=== PATIENT | female | born 1930 | race Caucasian/White ===

== ENCOUNTER 2017-07-10 12:40 | Emergency (ER) | payer MEDICARE ==
[2017-07-10 13:49] LABS: PTT 34.5 SEC (22.9-36.1); Prothrombin Time 14.2 SEC (12.0-14.7)
== END 2017-07-10 14:34 | disposition home or self-care (01) ==
LOC: ERS 12:40
DX: S90.32XA Contusion of left foot, initial encounter (principal); I48.91 Unspecified atrial fibrillation; I10 Essential (primary) hypertension; M81.0 Age-related osteoporosis without current pathological fracture; X58.XXXA Exposure to other specified factors, initial encounter
CPT/HCPCS: 36415; 85610; 85730; 99284

== ENCOUNTER 2017-10-03 13:27 | Outpatient (CLI) | payer MEDICARE ==
--- NOTE | 2017-10-03 14:28 | RAD ---
CHEST 2 VIEWS: HISTORY: Pleural effusion. COMPARISON: 01/14/17. FINDINGS: Cardiac silhouette is enlarged. Pulmonary vasculature is unremarkable. Mediastinum is midline with aortic calcification and multilevel vertebroplasty cement. Compression of a lower thoracic vertebral body between the postoperative levels appears stable to the 01/14/17 frontal chest radiograph. Lungs are hyperinflated. No confluent airspace consolidation or evidence of pneumothorax IMPRESSION: 1. Chronic obstructive pulmonary disease. 2. No significant pleural fluid is evident. 3. Cardiomegaly. 4. Atherosclerosis. 5. Multilevel thoracic vertebral body compression and vertebroplasty. POS: [facility]
== END 2017-10-03 13:28 | disposition home or self-care (01) ==
LOC: RAD 13:27
PROVIDERS: ATTEND Internal Medicine Cardiovascular Disease
DX: J90 Pleural effusion, not elsewhere classified (principal); J44.9 Chronic obstructive pulmonary disease, unspecified; I51.7 Cardiomegaly; I70.0 Atherosclerosis of aorta; G95.29 Other cord compression
CPT/HCPCS: 71046

== ENCOUNTER 2018-10-03 13:09 | Outpatient (CLI) | payer MEDICARE ==
--- NOTE | 2018-10-03 15:38 | BD ---
DEXA BONE DENSITY STUDY: HISTORY: Postmenopausal. BMD (g/cm2) T-SCORE LEFT FEMORAL NECK 0.568 -2.5 TOTAL 0.660 -2.3 RIGHT FEMORAL NECK 0.501 -3.1 TOTAL 0.625 -2.6 IMPRESSION: Osteoporosis of the right and left femoral neck. POS: [facility]
== END 2018-10-03 13:10 | disposition home or self-care (01) ==
LOC: BICMAMMO 13:09
PROVIDERS: ATTEND Internal Medicine Rheumatology
DX: M81.0 Age-related osteoporosis without current pathological fracture (principal)
CPT/HCPCS: 77080

== ENCOUNTER 2020-08-06 13:47 | Emergency (ER) | payer MEDICARE ==
--- NOTE | 2020-08-06 14:43 | CT ---
CT BRAIN WITHOUT CONTRAST: HISTORY: Fall, headache COMPARISON: 11/18/2013 FINDINGS: No evidence of acute infarct, hemorrhage, midline shift or abnormal extra-axial fluid collections is seen. The ventricular size is appropriate and the basilar cisterns are patent. The bony calvarium is intact. The visualized paranasal sinuses and mastoid air cells are well aerated. IMPRESSION: No CT evidence of acute intracranial process.
--- NOTE | 2020-08-06 14:53 | RAD ---
XR Chest 1 View Portable History: Injury Comparison: Radiograph 2017 Findings: Patient is rotated to the right. Possible right upper lobe airspace opacity. Thorax. Heart size is enlarged. Impression: Possible right upper lobe airspace opacity reflect aspiration or pneumonia less likely pu lmonary contusion.
--- NOTE | 2020-08-06 14:54 | CT ---
Exam: CT cervical spine without contrast HISTORY: Trauma. Pain. COMPARISON: None FINDINGS: No craniocervical dissociation. Appropriate alignment of the lateral masses of C1 and C2. Intact odon toid process Appropriate alignment of the facets. Straightening of normal cervical lordosis may be due to patient position, muscle spasm or cervical co llar. Soft tissue neck structures: No mass, lymphadenopathy or hematoma. No prevertebral soft tissue swelli ng. Upper mediastinum and lung apices: Chronic changes along parenchyma. Possible right upper lobe infilt rate, incompletely evaluated Central spinal canal: Neural foramina and central spinal canal are patent. Evaluation is limited by t echnique Vertebral bodies: Cervical spine vertebral body height is maintained. No fracture. IMPRESSION: 1. No cervical spine fracture 2. Multilevel degenerative changes of the cervical spine. There is severe loss of disc space height a t C3-C4, C4-C5 and C5-C6. 3. Possible right upper lobe infiltrate.
--- NOTE | 2020-08-06 14:56 | RAD ---
XR Hip Lt 2-3 View History: Injury Comparison: None. Findings: Subtle ovoid calcification measuring up to 1.5 cm projects over the lateral femoral cortex may reflect an area of heterotopic ossification. No acute displaced fracture or malalignment. The left obturator ring is intact. Left femoral head and neck are intact. Impression: 1. No acute fracture or malalignment. 2. 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
[2020-08-06 15:31] LABS: #Lymphocytes 1.2 thou/uL (1.20-3.40); #Neutrophils 5.4 thou/uL (1.40-6.50); %Basophils 0.1 % (0.0-1.0); %Eosinophils 0.3 % (0.0-10.0); %Lymphocytes 15.7 % (21.0-51.0); %Monocytes 12.5 % (0.0-10.0); %Neutrophils 71.4 % (42.0-75.0); Hemoglobin 13.4 g/dL (12.0-16.0); Mean Corpuscular HGB CONC 33.5 g/dL (32.0-36.0); Mean Corpuscular Hemoglobin 34.3 pg (27.0-31.0); Mean Platelet Volume 7.7 fL (7.4-10.4); Platelet Count 143 thou/uL (130-400); RBC Distribution Width 11.2 % (11.5-14.5); White Blood Cell (WBC) Count 7.6 thou/uL (4.8-10.8)
[2020-08-06] MEDS ORDERED: Cefepime 2 GM VIAL ONE (15:32)
[2020-08-06] MEDS ORDERED: Azithromycin 500 MG VIAL ONE (15:32)
[2020-08-06 15:53] LABS: ALT (SGPT) 17 U/L (8-55); AST (SGOT) 24 U/L (5-34); Albumin 4.1 g/dL (3.4-4.8); Alkaline Phosphatase 82 U/L (40-110); Anion Gap 17 mmol/L (10-20); BUN (Urea Nitrogen) 19 mg/dL (9.8-20.1); Bilirubin, Total 1.1 mg/dL (0.2-1.2); Calc. Creatinine Clearance 0 mL/min (70-130); Calcium 9.3 mg/dL (7.8-10.44); Carbon Dioxide 28 mmol/L (23-31); Chloride 100 mmol/L (98-107); Globulin 3.9 g/dL (2.4-3.5); Glucose 96 mg/dL (83-110); Sodium 141 mmol/L (136-145)
[2020-08-06 19:57] LABS: Bilirubin Negative (Negative); Blood, Urine Negative (Negative); Clarity Clear (Clear); Glucose, Urine (Dipstick) Normal (Negative); Ketone, Urine 60 mg/dL (Negative); Leukocyte 250 Leu/uL (Negative); Nitrite Negative (Negative); Protein, Urine (Dipstick) 20 mg/dL (Neg-Trace); RBC/HPF 0-3 HPF (0-3); Specific Gravity, Urine 1.014 (1.002-1.036); Squamous Epithelial 0-3 HPF (0-3); Urobilinogen Normal mg/dL (Less than 2); WBC/HPF 21-50 HPF (0-3); pH, Urine 7.5 (5.0-9.0)
[2020-08-06 20:07] LABS: Bacteria/HPF 1+ HPF (None Seen)
== END 2020-08-06 19:53 | disposition home or self-care (01) ==
LOC: ERS 13:47
DX: S00.83XA Contusion of other part of head, initial encounter (principal); S60.221A Contusion of right hand, initial encounter; J18.9 Pneumonia, unspecified organism; I48.91 Unspecified atrial fibrillation; E03.9 Hypothyroidism, unspecified; I10 Essential (primary) hypertension; W17.89XA Other fall from one level to another, initial encounter
CPT/HCPCS: 36415; 70450; 71045; 72125; 80053; 81003; 81015; 83605; 85025; 87040; 87086; 96365; 96366; 96367; J0456; J0692

== ENCOUNTER 2021-12-21 08:48 | Emergency (ER) | payer MEDICARE ==
[2021-12-21 10:17] LABS: #Lymphocytes 0.9 thou/uL (1.20-3.40); #Monocytes 0.7 thou/uL (0.11-0.59); #Neutrophils 5.6 thou/uL (1.40-6.50); %Basophils 0.1 % (0.0-1.0); %Eosinophils 0.6 % (0.0-10.0); %Lymphocytes 12.8 % (21.0-51.0); %Monocytes 9.9 % (0.0-10.0); %Neutrophils 76.7 % (42.0-75.0); Hemoglobin 10.3 g/dL (12.0-16.0); Mean Corpuscular HGB CONC 31.8 g/dL (32.0-36.0); Mean Corpuscular Hemoglobin 32.6 pg (27.0-31.0); Mean Platelet Volume 7.6 fL (7.4-10.4); Platelet Count 125 thou/uL (130-400); Red Blood Cell (RBC) Count 3.15 mill/uL (4.20-5.40); White Blood Cell (WBC) Count 7.3 thou/uL (4.8-10.8)
[2021-12-21 10:34] LABS: ALT (SGPT) 18 U/L (8-55); AST (SGOT) 26 U/L (5-34); Albumin 3.6 g/dL (3.4-4.8); Alkaline Phosphatase 68 U/L (40-110); Anion Gap 11 mmol/L (10-20); BUN (Urea Nitrogen) 19 mg/dL (9.8-20.1); Bilirubin, Total 1.5 mg/dL (0.2-1.2); CK (CPK) 18 U/L (29-168); Calc. Creatinine Clearance 0 mL/min (70-130); Calcium 9.1 mg/dL (7.8-10.44); Carbon Dioxide 31 mmol/L (23-31); Chloride 100 mmol/L (98-107); Globulin 2.9 g/dL (2.4-3.5); Glucose 87 mg/dL (83-110); Potassium 3.9 mmol/L (3.5-5.1); Protein, Total 6.5 g/dL (5.8-8.1); Sodium 138 mmol/L (136-145)
== END 2021-12-21 12:12 | disposition home or self-care (01) ==
LOC: ERS 08:48
DX: L03.312 Cellulitis of back [any part except buttock and flank] (principal); I48.91 Unspecified atrial fibrillation; E03.9 Hypothyroidism, unspecified; I10 Essential (primary) hypertension; M81.0 Age-related osteoporosis without current pathological fracture; Z79.899 Other long term (current) drug therapy
CPT/HCPCS: 36415; 71045; 80053; 82550; 83605; 83880; 85025

== ENCOUNTER 2022-01-05 13:59 | Emergency (ER) | payer MEDICARE ==
[~2022-01-05 13:59] MED LIST: Iopamidol-370 76% 500 ML 1 ML ONE
[2022-01-05 16:50] LABS: ALT (SGPT) 21 U/L (8-55); AST (SGOT) 33 U/L (5-34); Albumin 4.2 g/dL (3.4-4.8); Alkaline Phosphatase 64 U/L (40-110); Anion Gap 14 mmol/L (10-20); BUN (Urea Nitrogen) 20 mg/dL (9.8-20.1); Bilirubin, Total 0.9 mg/dL (0.2-1.2); Calc. Creatinine Clearance 0 mL/min (70-130); Carbon Dioxide 31 mmol/L (23-31); Chloride 100 mmol/L (98-107); Globulin 3.6 g/dL (2.4-3.5); Glucose 86 mg/dL (83-110); Protein, Total 7.8 g/dL (5.8-8.1); Sodium 141 mmol/L (136-145)
[2022-01-05 17:50] LABS: #Eosinphils 0.1 thou/uL (0.0-0.7); #Monocytes 0.5 thou/uL (0.11-0.59); #Neutrophils 1.9 thou/uL (1.40-6.50); %Basophils 1.2 % (0.0-1.0); %Eosinophils 2.3 % (0.0-10.0); %Lymphocytes 29.2 % (21.0-51.0); %Monocytes 13.2 % (0.0-10.0); %Neutrophils 54.2 % (42.0-75.0); Hemoglobin 11.6 g/dL (12.0-16.0); Mean Corpuscular Hemoglobin 32.9 pg (27.0-31.0); Mean Corpuscular Volume 99.6 fL (78.0-98.0); Mean Platelet Volume 7.4 fL (7.4-10.4); Platelet Count 157 thou/uL (130-400); RBC Distribution Width 12.4 % (11.5-14.5); Red Blood Cell (RBC) Count 3.54 mill/uL (4.20-5.40); White Blood Cell (WBC) Count 3.5 thou/uL (4.8-10.8)
== END 2022-01-05 19:25 | disposition home or self-care (01) ==
LOC: ERS 13:59
DX: K80.20 Calculus of gallbladder without cholecystitis without obstruction (principal); I48.91 Unspecified atrial fibrillation; E03.9 Hypothyroidism, unspecified; M81.0 Age-related osteoporosis without current pathological fracture; I10 Essential (primary) hypertension; Z79.899 Other long term (current) drug therapy; Z79.82 Long term (current) use of aspirin; Z79.01 Long term (current) use of anticoagulants; Z79.1 Long term (current) use of non-steroidal anti-inflammatories (NSAID)
CPT/HCPCS: 36415; 74177; 76705; 80053; 83690; 85025; Q9967

== ENCOUNTER 2022-01-26 16:03 | Outpatient (CLI) | payer MEDICARE ==
[2022-01-26 17:52] LABS: ALT (SGPT) 24 U/L (8-55); AST (SGOT) 36 U/L (5-34); Albumin 4.5 g/dL (3.4-4.8); Alkaline Phosphatase 55 U/L (40-110); Anion Gap 15 mmol/L (10-20); BUN (Urea Nitrogen) 20 mg/dL (9.8-20.1); Bilirubin, Direct 0.3 mg/dL (0.1-0.3); Bilirubin, Total 0.7 mg/dL (0.2-1.2); Calc. Creatinine Clearance 0 mL/min (70-130); Calcium 10.5 mg/dL (7.8-10.44); Carbon Dioxide 32 mmol/L (23-31); Estimated GFR 65; Globulin 3.5 g/dL (2.4-3.5); Glucose 108 mg/dL (83-110); Potassium 3.7 mmol/L (3.5-5.1)
[2022-01-26 18:03] LABS: #Eosinphils 0.1 10x3/uL (0.0-0.5); #Monocytes 0.7 10x3/uL (0.0-1.1); #Neutrophils 2.5 10x3/uL (1.5-8.4); %Basophils 0.7 % (0.0-2.0); %Eosinophils 2.4 % (0.0-6.0); %Lymphocytes 27.1 % (18.0-47.0); %Monocytes 14.4 % (0.0-10.0); %Neutrophils 55.4 % (40.0-75.0); Chloride 99 mmol/L (98-107); Hemoglobin 11.6 g/dL (12.0-15.5); Mean Corpuscular HGB CONC 32.5 g/dL (32.0-36.0); Mean Corpuscular Hemoglobin 31.6 pg (27.0-33.0); Mean Corpuscular Volume 97.3 fl (81.6-98.3); Platelet Count 145 10x3/uL (150-450); RBC Distribution Width 13.3 % (11.5-14.5); Red Blood Cell (RBC) Count 3.67 10x6/uL (3.90-5.03); Sodium 142 mmol/L (136-145); White Blood Cell (WBC) Count 4.6 10x3/uL (3.5-10.5)
== END 2022-01-26 16:04 | disposition home or self-care (01) ==
LOC: LABBT 16:03
PROVIDERS: ATTEND Surgery
DX: Z01.812 Encounter for preprocedural laboratory examination (principal); K80.20 Calculus of gallbladder without cholecystitis without obstruction; Z20.822 Contact with and (suspected) exposure to COVID-19
CPT/HCPCS: 80053; 80076; 85025; 87811

== ENCOUNTER 2022-01-29 06:32 | Day surgery (SDC) | payer MEDICARE ==
[2022-01-28 10:05] VITALS: BMI 18.1
[2022-01-29] MEDS ORDERED: Lidocaine 1% w/Epinephrine 1:100K 20 ML VIAL ONE (09:43)
[2022-01-29] MEDS ORDERED: Bupivacaine 0.25% HCL 30 ML VIAL ONE (09:43)
[2022-01-29] MEDS ORDERED: fentaNYL Citrate/PF 100 MCG/2 ML SYRINGE ONE (09:52)
[2022-01-29] MEDS ORDERED: cefOXitin 2 GM VIAL ONE (10:02)
[2022-01-29] MEDS ORDERED: Naloxone HCl 0.4 mg/ml Vial ONE (10:02)
[2022-01-29] MEDS ORDERED: Sodium Chloride 0.9% 100 ML ONE (10:02)
[2022-01-29] MEDS ORDERED: Ondansetron PF 4 MG/2 ML Vial ONE ×2 (10:02→10:19)
[2022-01-29] MEDS ORDERED: Dexamethasone 20 MG/5 ML VIAL ONE (10:19)
[2022-01-29] MEDS ORDERED: Rocuronium Bromide 10 MG/ML (10ML VIAL) ONE (10:19)
[2022-01-29] MEDS ORDERED: Glycopyrrolate 0.2 MG/ML 5 ML SYRINGE ONE (10:19)
[2022-01-29] MEDS ORDERED: PROPOFOL 200 MG/20 ML VIAL ONE (10:19)
[2022-01-29] MEDS ORDERED: Lidocaine 1% PF 5 ML VIAL ONE (10:19)
[2022-01-29] MEDS ORDERED: HYDROcodone/Acetaminophen 5/325 mg Tablet ONE (14:38)
== END 2022-01-29 15:50 ==
LOC: SDC 06:32
PROVIDERS: ATTEND Surgery
PROC: 0FT44ZZ Resection of Gallbladder, Percutaneous Endoscopic Approach (ICD-10-PCS; principal; 2022-01-29)
DX: K80.10 Calculus of gallbladder with chronic cholecystitis without obstruction (principal); K82.1 Hydrops of gallbladder; M81.0 Age-related osteoporosis without current pathological fracture; I48.19 Other persistent atrial fibrillation; I11.0 Hypertensive heart disease with heart failure; I50.9 Heart failure, unspecified; I34.0 Nonrheumatic mitral (valve) insufficiency; E03.9 Hypothyroidism, unspecified; K21.9 Gastro-esophageal reflux disease without esophagitis; Z79.01 Long term (current) use of anticoagulants; Z79.82 Long term (current) use of aspirin; Z79.890 Hormone replacement therapy; Z79.899 Other long term (current) drug therapy; Z88.0 Allergy status to penicillin
CPT/HCPCS: 47562; C1713; 88304; J0694; J1100; J2310; J2405; J2704; J2710; J3490; S0020

== ENCOUNTER 2022-02-07 09:15 | Inpatient (IN) | payer MEDICARE ==
[2022-02-07 10:38] LABS: #Lymphocytes 0.7 thou/uL (1.20-3.40); #Monocytes 1.3 thou/uL (0.11-0.59); #Neutrophils 12.2 thou/uL (1.40-6.50); %Basophils 0.1 % (0.0-1.0); %Lymphocytes 4.8 % (21.0-51.0); %Monocytes 9.2 % (0.0-10.0); %Neutrophils 85.8 % (42.0-75.0); Hemoglobin 11.2 g/dL (12.0-16.0); Mean Corpuscular HGB CONC 32.1 g/dL (32.0-36.0); Mean Corpuscular Hemoglobin 32.4 pg (27.0-31.0); Platelet Count 148 thou/uL (130-400); RBC Distribution Width 13.1 % (11.5-14.5); Red Blood Cell (RBC) Count 3.44 mill/uL (4.20-5.40); White Blood Cell (WBC) Count 14.2 thou/uL (4.8-10.8)
[2022-02-07 10:43] LABS: Bacteria/HPF 4+ HPF (None Seen); Bilirubin Negative (Negative); Blood, Urine Negative (Negative); Clarity Clear (Clear); Glucose, Urine (Dipstick) Normal (Negative); Ketone, Urine Negative (Negative); Leukocyte Negative Leu/uL (Negative); Nitrite Negative (Negative); Protein, Urine (Dipstick) 30 mg/dL (Neg-Trace); RBC/HPF 0-3 HPF (0-3); Specific Gravity, Urine 1.017 (1.002-1.036); Squamous Epithelial None Seen HPF (0-3); Urobilinogen Normal mg/dL (Less than 2); WBC/HPF 0-3 HPF (0-3); pH, Urine 5.5 (5.0-9.0)
[2022-02-07 10:56] LABS: ALT (SGPT) 24 U/L (8-55); AST (SGOT) 26 U/L (5-34); Albumin 3.9 g/dL (3.4-4.8); Alkaline Phosphatase 100 U/L (40-110); Anion Gap 19 mmol/L (10-20); BUN (Urea Nitrogen) 26 mg/dL (9.8-20.1); Bilirubin, Total 1.8 mg/dL (0.2-1.2); Calc. Creatinine Clearance 0 mL/min (70-130); Carbon Dioxide 28 mmol/L (23-31); Chloride 93 mmol/L (98-107); Estimated GFR 65; Glucose 91 mg/dL (83-110); Potassium 4.2 mmol/L (3.5-5.1); Protein, Total 7.9 g/dL (5.8-8.1); Sodium 136 mmol/L (136-145)
[2022-02-07 11:02] LABS: SARS-CoV-2 NAA Rapid Test Not Detected (NotDetected)
[2022-02-07] MEDS ORDERED: Cefepime 2 GM VIAL ONE (11:33)
[2022-02-07] MEDS ORDERED: Vancomycin 1 GM/200 ML BAG ONE (12:39)
[2022-02-07] MEDS ORDERED: Ondansetron ODT 4 MG TAB PO PRN (14:39)
[2022-02-07] MEDS: Sodium Chloride 0.9% 1,000 ML IV SCH (16:30)
[2022-02-07 17:09] VITALS: BMI 19.9
[2022-02-07] MEDS: Azithromycin 500 MG in Sodium Chloride 0.9% 250 ML 250 ML IVPB SCH (19:25)
[2022-02-07] MEDS: Acetaminophen 325 MG TAB PO PRN (19:30)
[2022-02-07] MEDS: cefTRIAXone\\ROCEPHIN 1 GM in Sodium Chloride 0.9% 100 ML IVPB SCH (21:00)
[2022-02-08] MEDS: Sodium Chloride 0.9% 1,000 ML IV SCH ×2 (04:24→17:30)
[2022-02-08 06:47] LABS: #Eosinphils 0.1 thou/uL (0.0-0.7); #Lymphocytes 0.7 thou/uL (1.20-3.40); #Monocytes 0.7 thou/uL (0.11-0.59); #Neutrophils 5.9 thou/uL (1.40-6.50); %Eosinophils 0.7 % (0.0-10.0); %Lymphocytes 9.1 % (21.0-51.0); %Monocytes 9.7 % (0.0-10.0); %Neutrophils 80.5 % (42.0-75.0); Hemoglobin 9.7 g/dL (12.0-16.0); Mean Corpuscular HGB CONC 31.2 g/dL (32.0-36.0); Mean Corpuscular Hemoglobin 31.6 pg (27.0-31.0); Mean Platelet Volume 7.7 fL (7.4-10.4); Platelet Count 152 thou/uL (130-400); RBC Distribution Width 12.9 % (11.5-14.5); Red Blood Cell (RBC) Count 3.07 mill/uL (4.20-5.40); White Blood Cell (WBC) Count 7.4 thou/uL (4.8-10.8)
[2022-02-08 07:00] LABS: Anion Gap 13 mmol/L (10-20); BUN (Urea Nitrogen) 24 mg/dL (9.8-20.1); Calc. Creatinine Clearance 38 mL/min (70-130); Calcium 8.6 mg/dL (7.8-10.44); Carbon Dioxide 28 mmol/L (23-31); Chloride 101 mmol/L (98-107); Estimated GFR 83; Glucose 89 mg/dL (83-110); Potassium 3.7 mmol/L (3.5-5.1); Sodium 138 mmol/L (136-145)
[2022-02-08] MEDS ORDERED: Communication Order-Pharmacy FS SCH (09:06)
[2022-02-08] MEDS ORDERED: Enoxaparin Sodium 80 MG/0.8 ML SYRINGE SC SCH (09:15)
[2022-02-08] MEDS ORDERED: ALPRAZolam 0.25 MG TAB PO SCH ×2 (09:15)
[2022-02-08] MEDS ORDERED: Digoxin 0.125 MG TAB PO SCH (09:15)
[2022-02-08] MEDS ORDERED: Folic Acid 1 MG TAB PO SCH (09:30)
[2022-02-08] MEDS ORDERED: Enoxaparin Sodium 40 MG/0.4 ML SYRINGE SC SCH ×2 (09:30→21:00)
[2022-02-08] MEDS ORDERED: Cyanocobalamin (Vitamin B-12) 1,000 MCG TAB PO SCH (09:30)
[2022-02-08 10:18] LABS: Troponin I Less than 0.010 ng/mL (< 0.028)
[2022-02-08] MEDS: Azithromycin 500 MG in Sodium Chloride 0.9% 250 ML 250 ML IVPB SCH (16:08)
[2022-02-08] MEDS: ALPRAZolam 0.25 MG TAB PO SCH (20:06)
[2022-02-08] MEDS: Saccharomyces boulardii 250 MG CAP PO SCH (20:07)
[2022-02-08] MEDS: Acetaminophen 325 MG TAB PO PRN (20:07)
[2022-02-08] MEDS: cefTRIAXone\\ROCEPHIN 1 GM in Sodium Chloride 0.9% 100 ML IVPB SCH (20:07)
[2022-02-08] MEDS: Apixaban 2.5 MG TAB PO SCH (20:07)
[2022-02-08] MEDS ORDERED: Polyethylene Glycol 3350 17 GM Packet PO SCH (21:00)
[2022-02-09] MEDS: Levothyroxine Sodium 50 MCG TAB PO SCH (05:43)
[2022-02-09 05:47] LABS: #Eosinphils 0.1 thou/uL (0.0-0.7); #Lymphocytes 0.9 thou/uL (1.20-3.40); #Monocytes 0.6 thou/uL (0.11-0.59); #Neutrophils 5.8 thou/uL (1.40-6.50); %Basophils 0.3 % (0.0-1.0); %Eosinophils 0.9 % (0.0-10.0); %Lymphocytes 12.1 % (21.0-51.0); %Monocytes 7.7 % (0.0-10.0); %Neutrophils 78.9 % (42.0-75.0); Hemoglobin 11.3 g/dL (12.0-16.0); Mean Corpuscular HGB CONC 32.6 g/dL (32.0-36.0); Mean Corpuscular Hemoglobin 32.4 pg (27.0-31.0); Mean Corpuscular Volume 99.4 fL (78.0-98.0); Platelet Count 218 thou/uL (130-400); RBC Distribution Width 12.9 % (11.5-14.5); Red Blood Cell (RBC) Count 3.51 mill/uL (4.20-5.40); White Blood Cell (WBC) Count 7.3 thou/uL (4.8-10.8)
[2022-02-09 06:05] LABS: Anion Gap 13 mmol/L (10-20); BUN (Urea Nitrogen) 15 mg/dL (9.8-20.1); Calc. Creatinine Clearance 43 mL/min (70-130); Calcium 8.3 mg/dL (7.8-10.44); Carbon Dioxide 27 mmol/L (23-31); Chloride 105 mmol/L (98-107); Estimated GFR 85; Glucose 98 mg/dL (83-110); Potassium 3.6 mmol/L (3.5-5.1); Sodium 141 mmol/L (136-145)
[2022-02-09 06:43] LABS: ALT (SGPT) 16 U/L (8-55); AST (SGOT) 21 U/L (5-34); Alkaline Phosphatase 90 U/L (40-110); Bilirubin, Direct 0.3 mg/dL (0.1-0.3); Bilirubin, Total 0.7 mg/dL (0.2-1.2); Protein, Total 6.3 g/dL (5.8-8.1)
[2022-02-09 06:52] LABS: Phosphorus 1.7 mg/dL (2.3-4.7)
[2022-02-09 08:05] LABS: Digoxin 0.39 ng/mL (0.8-2.0)
[2022-02-09] MEDS ORDERED: HYDROcodone/Acetaminophen 5/325 mg Tablet PO PRN (08:17)
[2022-02-09] MEDS ORDERED: Digoxin 0.125 MG TAB PO SCH (09:00)
[2022-02-09] MEDS: Multivitamin W/ Minerals 1 TAB PO SCH (09:27)
[2022-02-09] MEDS: Folic Acid 1 MG TAB PO SCH (09:27)
[2022-02-09] MEDS: Sodium Chloride 0.9% 1,000 ML IV SCH (09:27)
[2022-02-09] MEDS: Cyanocobalamin (Vitamin B-12) 1,000 MCG TAB PO SCH (09:27)
[2022-02-09] MEDS: Apixaban 2.5 MG TAB PO SCH ×2 (09:28→21:26)
[2022-02-09] MEDS ORDERED: Polyethylene Glycol 3350 17 GM Packet PO SCH ×2 (14:15→21:00)
[2022-02-09] MEDS: cefTRIAXone\\ROCEPHIN 1 GM in Sodium Chloride 0.9% 100 ML IVPB SCH (21:23)
[2022-02-09] MEDS: HYDROcodone/Acetaminophen 7.5/325 mg Tablet PO SCH (21:26)
[2022-02-09] MEDS: ALPRAZolam 0.25 MG TAB PO SCH (21:26)
[2022-02-09] MEDS: Saccharomyces boulardii 250 MG CAP PO SCH (21:27)
[2022-02-09] MEDS: Nystatin Powder 15 GM BOT TOP SCH (21:29)
[2022-02-09] MEDS: Azithromycin 500 MG in Sodium Chloride 0.9% 250 ML 250 ML IVPB SCH (22:04)
[2022-02-10] MEDS: Levothyroxine Sodium 50 MCG TAB PO SCH (05:57)
[2022-02-10 07:07] LABS: #Eosinphils 0.3 thou/uL (0.0-0.7); #Lymphocytes 1.3 thou/uL (1.20-3.40); #Monocytes 0.6 thou/uL (0.11-0.59); #Neutrophils 3.2 thou/uL (1.40-6.50); %Basophils 0.2 % (0.0-1.0); %Eosinophils 5.6 % (0.0-10.0); %Lymphocytes 23.5 % (21.0-51.0); %Monocytes 11.6 % (0.0-10.0); %Neutrophils 59.1 % (42.0-75.0); Mean Corpuscular HGB CONC 31.5 g/dL (32.0-36.0); Mean Corpuscular Hemoglobin 32.1 pg (27.0-31.0); Mean Platelet Volume 6.6 fL (7.4-10.4); Platelet Count 238 thou/uL (130-400); RBC Distribution Width 12.7 % (11.5-14.5); White Blood Cell (WBC) Count 5.4 thou/uL (4.8-10.8)
[2022-02-10 07:16] LABS: Anion Gap 11 mmol/L (10-20); BUN (Urea Nitrogen) 16 mg/dL (9.8-20.1); Calc. Creatinine Clearance 43 mL/min (70-130); Calcium 7.8 mg/dL (7.8-10.44); Carbon Dioxide 26 mmol/L (23-31); Chloride 109 mmol/L (98-107); Estimated GFR 85; Glucose 85 mg/dL (83-110); Potassium 4.1 mmol/L (3.5-5.1); Sodium 142 mmol/L (136-145)
[2022-02-10 07:44] LABS: Phosphorus 3.2 mg/dL (2.3-4.7)
[2022-02-10] MEDS: Polyethylene Glycol 3350 17 GM Packet PO SCH (08:24)
[2022-02-10] MEDS: Digoxin 0.125 MG TAB PO SCH (08:25)
[2022-02-10] MEDS: Folic Acid 1 MG TAB PO SCH (08:26)
[2022-02-10] MEDS: Multivitamin W/ Minerals 1 TAB PO SCH (08:26)
[2022-02-10] MEDS: Apixaban 2.5 MG TAB PO SCH ×2 (08:26→20:57)
[2022-02-10] MEDS: HYDROcodone/Acetaminophen 7.5/325 mg Tablet PO SCH ×2 (08:26→20:56)
[2022-02-10] MEDS: Cyanocobalamin (Vitamin B-12) 1,000 MCG TAB PO SCH (08:27)
[2022-02-10] MEDS: Azithromycin 500 MG in Sodium Chloride 0.9% 250 ML 250 ML IVPB SCH (15:09)
[2022-02-10] MEDS: Nystatin Powder 15 GM BOT TOP SCH ×2 (15:12→20:57)
[2022-02-10] MEDS: Saccharomyces boulardii 250 MG CAP PO SCH (20:56)
[2022-02-10] MEDS: cefTRIAXone\\ROCEPHIN 1 GM in Sodium Chloride 0.9% 100 ML IVPB SCH (20:56)
[2022-02-10] MEDS: ALPRAZolam 0.25 MG TAB PO SCH (20:57)
[2022-02-11 06:13] LABS: #Eosinphils 0.3 thou/uL (0.0-0.7); #Lymphocytes 1.1 thou/uL (1.20-3.40); #Monocytes 0.4 thou/uL (0.11-0.59); #Neutrophils 2.6 thou/uL (1.40-6.50); %Basophils 0.7 % (0.0-1.0); %Eosinophils 6.4 % (0.0-10.0); %Monocytes 9.8 % (0.0-10.0); %Neutrophils 59.2 % (42.0-75.0); Hemoglobin 9.2 g/dL (12.0-16.0); Mean Corpuscular HGB CONC 31.1 g/dL (32.0-36.0); Mean Corpuscular Hemoglobin 31.9 pg (27.0-31.0); Mean Platelet Volume 6.8 fL (7.4-10.4); Platelet Count 238 thou/uL (130-400); RBC Distribution Width 12.6 % (11.5-14.5); Red Blood Cell (RBC) Count 2.89 mill/uL (4.20-5.40); White Blood Cell (WBC) Count 4.4 thou/uL (4.8-10.8)
[2022-02-11] MEDS: Levothyroxine Sodium 50 MCG TAB PO SCH (06:34)
[2022-02-11 06:36] LABS: Anion Gap 8 mmol/L (10-20); BUN (Urea Nitrogen) 14 mg/dL (9.8-20.1); Calc. Creatinine Clearance 45 mL/min (70-130); Calcium 8.1 mg/dL (7.8-10.44); Carbon Dioxide 27 mmol/L (23-31); Chloride 107 mmol/L (98-107); Estimated GFR 86; Glucose 84 mg/dL (83-110); Potassium 4.1 mmol/L (3.5-5.1); Sodium 138 mmol/L (136-145)
[2022-02-11] MEDS: Polyethylene Glycol 3350 17 GM Packet PO SCH (08:49)
[2022-02-11] MEDS: Folic Acid 1 MG TAB PO SCH (08:49)
[2022-02-11] MEDS: Apixaban 2.5 MG TAB PO SCH (08:49)
[2022-02-11] MEDS: Multivitamin W/ Minerals 1 TAB PO SCH (08:49)
[2022-02-11] MEDS: Digoxin 0.125 MG TAB PO SCH (08:49)
[2022-02-11] MEDS: Cyanocobalamin (Vitamin B-12) 1,000 MCG TAB PO SCH (08:50)
[2022-02-11] MEDS: Nystatin Powder 15 GM BOT TOP SCH (08:50)
[2022-02-11] MEDS: HYDROcodone/Acetaminophen 7.5/325 mg Tablet PO SCH (08:50)
[2022-02-11 12:49] VITALS: BP 145/91; TEMP 97
== END 2022-02-11 13:29 | DRG 871 ==
LOC: ERS 09:15 → T4-B 14:08
PROVIDERS: ADMIT Internal Medicine; ATTEND Internal Medicine
DX: A41.59 Other Gram-negative sepsis (principal); G93.41 Metabolic encephalopathy; J15.6 Pneumonia due to other Gram-negative bacteria; I48.20 Chronic atrial fibrillation, unspecified; J90 Pleural effusion, not elsewhere classified; R65.20 Severe sepsis without septic shock; J98.11 Atelectasis; Z66 Do not resuscitate; Z20.822 Contact with and (suspected) exposure to COVID-19; E03.9 Hypothyroidism, unspecified; E87.6 Hypokalemia; E83.39 Other disorders of phosphorus metabolism; I12.9 Hypertensive chronic kidney disease with stage 1 through stage 4 chronic kidney disease, or unspecified chronic kidney disease; N18.2 Chronic kidney disease, stage 2 (mild); R53.81 Other malaise; M81.0 Age-related osteoporosis without current pathological fracture; G89.4 Chronic pain syndrome; F41.9 Anxiety disorder, unspecified; D53.9 Nutritional anemia, unspecified; Z90.49 Acquired absence of other specified parts of digestive tract; Z79.899 Other long term (current) drug therapy; Z79.890 Hormone replacement therapy; Z88.0 Allergy status to penicillin; Z90.710 Acquired absence of both cervix and uterus; Z79.01 Long term (current) use of anticoagulants
CPT/HCPCS: 36415; 71045; 74177; 78226; 80048; 80053; 80076; 80162; 81003; 81015; 83605; 83735; 84100; 84484; 85025; 87040; 87086; 93005; A9537; J0456; J0692; J0696; J3370; J3490; J7030; J7050